=== PATIENT | female | born 1980 | race Caucasian/White ===

== ENCOUNTER → 2017-07-28 | Outpatient (CLI) | payer BC ==
--- NOTE | 2017-07-28 13:25 | US ---
EXAMINATION TYPE: US thyroid st tissue head/neck DATE OF EXAM: 07/28/2017 COMPARISON: EXAMINATION TYPE: US thyroid st tissue head/neck DATE OF EXAM: 07/28/2017 COMPARISON: US 12/02/[address] 12/17/2015 CLINICAL HISTORY: J02.9 Acute pharyngitis, unspecified. Patient states Doctor told her that her left neck felt swollen. Generalized not feeling well. At the area of swelling on the patient's left neck, there is a hypoechoic area visualized measuring 1 .9 x 0.8 x 1.1 cm, probable lymph node. IMPRESSION: Nonspecific soft tissue nodule measuring 1.9 x 0.8 x 1.1 cm likely related to a lymph no de.
== END | disposition home or self-care (01) ==
LOC: RADUSWWP 12:58
PROVIDERS: ATTEND Family Medicine
DX: M79.89 Other specified soft tissue disorders (principal); J02.9 Acute pharyngitis, unspecified
CPT/HCPCS: 76536

== ENCOUNTER → 2017-08-18 | Outpatient (CLI) | payer BC ==
--- NOTE | 2017-08-18 17:50 | US ---
EXAMINATION TYPE: US thyroid st tissue head/neck DATE OF EXAM: 08/18/2017 COMPARISON: US 07/28/2017, CT 12/17/2015 CLINICAL HISTORY: R59.0 Localized enlarged lymph nodes. GLAND SIZE: Right Lobe: 4.7 x 1.1 x 1.3 cm Overall Parenchyma: homogenous Left Lobe: 4.1 x 1.1 x 1.2 cm Overall Parenchyma: homogeneous Isthmus Thickness: 0.2 cm NODULES RIGHT: # of nodules measured on right: 0 LEFT: # of nodules measured on left: 0 ISTHMUS: # of nodules measured in the isthmus: 0 Within the left neck, there is again a hypoechoic area visualized measuring 1.7 x 0.9 x 1.0 cm, lymph node is stable compared to prior ultrasound in the right neck. IMPRESSION: Benign-appearing lymph node. Normal thyroid ultrasound.
== END | disposition home or self-care (01) ==
LOC: RADUSMAIN 16:52
PROVIDERS: ATTEND Family Medicine
DX: R59.0 Localized enlarged lymph nodes (principal); M54.2 Cervicalgia
CPT/HCPCS: 76536

== ENCOUNTER 2017-10-20 09:40 | Day surgery (SDC) | payer BC ==
[2017-10-18 13:54] VITALS: BMI 30.4
[~2017-10-20 09:40] MED LIST: CLINDAMYCIN 600 MG in DEXTROSE 5% IN WATER 50 ML IVPB ONE; DEXAMETHASONE SOD PHOSPHATE 10 MG/ML 1 ML VIAL IV ONE; DEXAMETHASONE SOD PHOSPHATE 4 MG/ML 1 ML VIAL IV ONE; FAMOTIDINE 20 MG/2 ML VIAL IV ONE; LACTATED RINGERS 1,000 ML IV SCH; LIDOCAINE 1% 20 ML VIAL (10MG/ML) FOR IV START INTRADERMA PRN; MIDAZOLAM 2 MG/2 ML VIAL IV PRN; ONDANSETRON 4 MG/2 ML VIAL IVP ONE; ONDANSETRON ODT 4 MG TAB PO ONE; SCOPOLAMINE 1.5MG/72HR PATCH TRANSDERM ONE; fentaNYL (PF) 50 MCG/ML 2 ML AMP IV PRN
[2017-10-20] MEDS ORDERED: LIDOCAINE 1% INJ 10MG/ML (20 ML MDV) ONE (12:12)
[2017-10-20] MEDS ORDERED: PROPOFOL 10 MG/ML 20 ML VIAL IV ONE (12:12)
[2017-10-20] MEDS ORDERED: SUCCINYLCHOLINE CHLORIDE 100 MG/5 ML SYR IV ONE (12:12)
[2017-10-20] MEDS ORDERED: DEXAMETHASONE SOD PHOS (MDV) 100 MG/10 ML VIAL ONE (12:12)
[2017-10-20] MEDS ORDERED: fentaNYL (PF) 50 MCG/ML 2 ML AMP ONE (12:12)
[2017-10-20] MEDS ORDERED: MIDAZOLAM 2 MG/2 ML VIAL ONE (12:12)
[2017-10-20] MEDS ORDERED: LIDOCAINE 1%-EPI 1:100,000 30 ML VIAL SQ ONE (12:48)
--- NOTE | 2017-10-20 13:09 | P.OP ---
Date of Procedure: 10/27/17 Preoperative Diagnosis: Chronic tonsillitis Tonsillar hypertrophy Left cervical lymphadenopathy Postoperative Diagnosis: Same Procedure(s) Performed: Adenotonsillectomy-adenoids cauterization fine-needle aspiration left cervical lymph node Anesthesia: ASHLEYA Surgeon: Sadi Hickey Estimated Blood Loss (ml): 5 Pathology: other (Bilateral tonsils, fine-needle aspiration left cervical lymph node) Condition: stable Disposition: PACU Indications for Procedure: Is a 37-year-old white female whose had difficulties with chronic and recurrent tonsillitis as well as asymmetric left tonsillar hypertrophy on a long-term basis. She also has had a chronically enlarged left upper cervical lymph node 1.8-1.9 cm. Operative Findings: Tonsils enlarged bilaterally +3 on the left and +2.5 on the right, adenoids mildly enlarged, approximately 1.8 cm left upper jugular chain lymph node which is soft nontender and mobile Description of Procedure: The patient was brought in the operative suite and placed in a supine position. The patient underwent induction of general anesthesia with oral endotracheal intubation without difficulty. The patient was prepped and draped using aseptic fashion. Fine-needle aspiration utilizing a 25-gauge needle was performed with 2 separate passes of a left cervical lymph node. 2 slides were made from this and also and aspirated with saline both sent to the pathologist. Good hemostasis noted and a sterile Band-Aid placed. The McIvor mouth gag was placed. The soft palate was palpated and no submucous cleft was noted. Red Gibson catheter was placed in the right nasal cavity and pulled through the oropharynx for soft palate retraction. Nasopharynx examined with a mirror exam and the adenoids were vaporized with suction cautery as they were only minimally enlarged. Hemostasis was noted to be excellent. The catheter was removed. Left tonsil was then grasped with a curved Allis clamp and dissected from the tonsillar fossa in a superior to inferior direction using both blunt and electrocautery dissection until the tonsil was removed. Once the tonsil was removed hemostasis was gained with suction cautery. Once hemostasis was obtained and remained good attention was turned to the right where the right tonsil was removed as likely as the left had been. Once this tonsils removed hemostasis was gained with suction cautery. Once hemostasis was obtained and remained good in both tonsillar fossa and the nasopharynx the patient was suctioned in oral gastric fashion the McIvor mouth gag was removed and the patient allowed to emerge from general anesthesia having tolerated procedure well was extubated in the operating suite and transferred to postop recovery area in satisfactory condition.
[2017-10-20 13:21] VITALS: TEMP 98.3
[2017-10-20] MEDS ORDERED: LACTATED RINGERS 1,000 ML IV ONE ×2 (13:45)
[2017-10-20] MEDS ORDERED: HYDROcodone/APAP 7.5-325MG 1 EACH TAB PO ONE (14:43)
[2017-10-20 14:58] VITALS: RESP 18
[2017-10-20 15:12] VITALS: BP 119/70; PULSE 98
== END 2017-10-20 15:41 | disposition home or self-care (01) ==
LOC: OR 09:40
PROVIDERS: ATTEND Otolaryngology
DX: J35.03 Chronic tonsillitis and adenoiditis (principal); R59.0 Localized enlarged lymph nodes; J35.8 Other chronic diseases of tonsils and adenoids; K13.79 Other lesions of oral mucosa; K51.90 Ulcerative colitis, unspecified, without complications; J30.9 Allergic rhinitis, unspecified; D64.9 Anemia, unspecified; Z79.2 Long term (current) use of antibiotics; Z79.1 Long term (current) use of non-steroidal anti-inflammatories (NSAID); Z79.51 Long term (current) use of inhaled steroids; Z79.899 Other long term (current) drug therapy; Z88.0 Allergy status to penicillin; Z88.1 Allergy status to other antibiotic agents; Z87.891 Personal history of nicotine dependence
CPT/HCPCS: 81025; 88304; 88305; 88173; 42821; 10021; J2250; J1100 ×2; J2001; J3010; J0330; J2704

== ENCOUNTER → 2018-03-19 | Outpatient (CLI) | payer BC ==
[2018-03-19 16:45] LABS: Iron Saturation 51.68 (12.00-45.00)
== END | disposition home or self-care (01) ==
LOC: LABWHC1 11:25
PROVIDERS: ATTEND Internal Medicine Gastroenterology
DX: K51.911 Ulcerative colitis, unspecified with rectal bleeding (principal); D64.9 Anemia, unspecified
CPT/HCPCS: 36415; 82728; 83540; 83550; 86480

== ENCOUNTER → 2021-09-03 | Outpatient (CLI) | payer BC | END | disposition home or self-care (01) | LOC: LABWHC1 11:50 | PROVIDERS: ATTEND Internal Medicine Infectious Disease | DX: K51.90 Ulcerative colitis, unspecified, without complications (principal) | CPT/HCPCS: 36415; 86480 ==

== ENCOUNTER → 2024-06-20 | Outpatient (CLI) | payer BC ==
[2024-06-20 19:12] LABS: Blood Urea Nitrogen 16.8 mg/dL (9.0-27.0); Chloride 104 mmol/L (96-109); Glucose 93 mg/dL (70-110); Potassium 4.6 mmol/L (3.5-5.5); Sodium 141 mmol/L (135-145)
[2024-06-20 19:13] LABS: ALT 19 U/L (8-44); AST 16 U/L (13-35); Albumin 4.5 g/dL (3.8-4.9); Albumin/Globulin Ratio 1.96 Ratio (1.60-3.17); Alkaline Phosphatase 50 U/L (41-126); Calcium 8.9 mg/dL (8.7-10.3); Carbon Dioxide 25.2 mmol/L (21.6-31.8); Globulin 2.3 g/dL (1.6-3.3); Total Bilirubin 0.2 mg/dL (0.3-1.2); Total Protein 6.8 g/dL (6.2-8.2)
[2024-06-20 20:05] LABS: Basophils # (A) 0.03 X 10*3/uL (0.00-0.10); Basophils % (A) 0.3 %; Eosinophils # (A) 0.27 X 10*3/uL (0.04-0.35); Eosinophils % (A) 2.7 %; HCT 41.3 % (37.2-46.3); HGB 13.3 g/dL (12.0-15.0); Lymphocytes # (A) 2.09 X 10*3/uL (0.90-5.00); Lymphocytes % (A) 21.1 %; MCH 28.7 pg (27.0-32.0); MCHC 32.2 g/dL (32.0-37.0); MCV 89.2 FL (80.0-97.0); Mean Platelet Volume 11.2 FL (9.5-12.2); Monocytes % (A) 6.1 %; NRBC Per 100 WBC 0 X 10*3/uL (0.00-0.01); Neutrophils # (A) 6.87 X 10*3/uL (1.80-7.70); Neutrophils % (A) 69.5 %; Platelet Count 308 X 10*3/uL (140-440); RBC 4.63 X 10*6/uL (4.10-5.20); RDW 12.2 % (11.5-14.5); WBC 9.89 X 10*3/uL (4.50-10.00)
== END | disposition home or self-care (01) ==
LOC: LABWHC1 14:21
PROVIDERS: ATTEND Internal Medicine Gastroenterology
DX: K51.90 Ulcerative colitis, unspecified, without complications (principal)
CPT/HCPCS: 36415; 80053; 85025; 86140; 86480